=== PATIENT | male | born 1955 | race Caucasian/White ===

== ENCOUNTER 2024-06-03 09:17 | Observation (INO) ==
[2024-06-03 10:05] LABS: Activated Partial Thrombo Time 30.7 seconds (26.0-38.0); INR 0.93 (0.83-1.13)
[2024-06-03] MEDS ORDERED: Dexamethasone IV 4 MG/ML VIAL 1 ml VIAL ONE (10:09)
[2024-06-03] MEDS ORDERED: Tranexamic Acid 1 GM/100ML BAG 2,000 MG/200 ML BAG IV ONE (10:09)
[2024-06-03] MEDS ORDERED: ceFAZolin 2 GM PREMIX 2 GM/50 ML BAG ONE (10:10)
[2024-06-03] MEDS ORDERED: Famotidine IV 10 MG/ML 2 ml VIAL (20 mg) ONE (10:10)
[2024-06-03] MEDS: Famotidine IV 10 MG/ML 2 ml VIAL (20 mg) IV ONE (10:20)
[2024-06-03] MEDS: Dexamethasone IV 4 MG/ML VIAL 1 ml VIAL IV SLOW PU ONE (10:22)
[2024-06-03 11:08] LABS: Rapid COVID-19 Molecular Undetected (Undetected)
[2024-06-03] MEDS ORDERED: ROPIVACAINE 5 MG/ML 30 ML BTL (0.5%) ONE (11:10)
[2024-06-03] MEDS ORDERED: Midazolam 2 mg/2 ml VIAL 1 mg/ml 2 ml VIAL (2 mg) ONE (11:19)
[2024-06-03] MEDS ORDERED: fentaNYL 100 mcg/2 ml 50 MCG/ML VIAL IV PRN (11:23)
[2024-06-03] MEDS ORDERED: Naloxone 0.4 mg VIAL 0.4 mg/ml 1 ml VIAL IV PRN (11:23)
[2024-06-03] MEDS ORDERED: Calcium Carb (TUMS) 500 mg CHEW TAB PO PRN (11:57)
[2024-06-03] MEDS ORDERED: Ondansetron ODT 4 mg TAB 4 MG TAB PO PRN (11:57)
[2024-06-03] MEDS ORDERED: Ondansetron 4 mg VIAL 2 MG/ML 2 ml VIAL IV PRN (11:57)
[2024-06-03] MEDS ORDERED: Magnesium Hydroxide LIQ 30 ML UDC PO PRN (11:57)
[2024-06-03] MEDS ORDERED: Morphine 2 MG/ML SYRINGE IV PRN (11:57)
[2024-06-03] MEDS ORDERED: Lactulose 30 ml UDC PO PRN (11:57)
[2024-06-03] MEDS ORDERED: Propofol 10 MG/ML 20 ML BTL ONE (13:54)
[2024-06-03] MEDS: Lactated Ringers 1000 ml BAG 1,000 ML IV SCH ×2 (16:05→16:20)
[2024-06-03] MEDS: Buffered Lidocaine 1% SYRIN 1 ml INTRADERM ONE (16:05)
[2024-06-03] MEDS: ceFAZolin 2 GM PREMIX 2 GM/50 ML BAG IV SCH (20:09)
[2024-06-03] MEDS: Magnesium Hydroxide LIQ 30 ML UDC PO SCH (21:55)
[2024-06-04 05:53] LABS: Hematocrit 36.3 % (38-53); Hemoglobin 12.3 g/dL (13.2-16.3); Platelet Count 234 10^3/uL (150-450)
[2024-06-04 06:19] LABS: Calcium 8.5 mg/dL (8.6-10.3); Potassium 4.1 mmol/L (3.5-5.0); eGFR CKD-EPI 81.5 (>60)
[2024-06-04] MEDS: Vitamin THERAPEUTIC TAB PO SCH (09:03)
[2024-06-04] MEDS: Aspirin EC 325 mg TAB.EC PO SCH (09:03)
[2024-06-04 10:39] VITALS: BP 122/73
== END 2024-06-04 12:40 | disposition home or self-care (01) ==
LOC: OR 09:17 → SSU 09:17
PROVIDERS: ADMIT Orthopaedic Surgery Adult Reconstructive Orthopaedic Surgery; ATTEND Orthopaedic Surgery Adult Reconstructive Orthopaedic Surgery